=== PATIENT | female | born 1995 | race Caucasian/White ===

== ENCOUNTER 2017-03-16 20:11 | Emergency (ER) | payer BC ==
[2017-03-16 20:24] VITALS: RESP 20
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
--- NOTE | 2017-03-16 21:02 | XR ---
EXAMINATION TYPE: XR foot complete RT DATE OF EXAM: 03/16/2017 COMPARISON: None HISTORY: Pain and swelling TECHNIQUE: 3 views FINDINGS: Metatarsals appear intact. I see no fracture nor dislocation. There is minor spurring at th e first MP joint. IMPRESSION: Minor spurring at the first MP joint. No fracture seen..
[2017-03-16 21:32] VITALS: BP 130/68; PULSE 100; TEMP 98
== END 2017-03-16 21:31 | disposition home or self-care (01) ==
LOC: EC 20:11
DX: M77.51 Other enthesopathy of right foot and ankle (principal); Z88.0 Allergy status to penicillin
CPT/HCPCS: 99283

== ENCOUNTER 2017-12-02 16:25 | Emergency (ER) | payer BC ==
[2017-12-02 16:48] VITALS: BP 117/88; RESP 17; TEMP 98.4
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
[2017-12-02 18:27] VITALS: PULSE 87
== END 2017-12-02 18:24 | disposition home or self-care (01) ==
LOC: EC 16:25
DX: M54.5 Low back pain (principal); G89.29 Other chronic pain; R20.0 Anesthesia of skin; Z79.1 Long term (current) use of non-steroidal anti-inflammatories (NSAID); Z88.0 Allergy status to penicillin
CPT/HCPCS: 99283

== ENCOUNTER → 2018-02-17 | Outpatient (CLI) | payer BC ==
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
== END | disposition home or self-care (01) ==
LOC: RADMRIMAIN 20:38
PROVIDERS: ATTEND Family Medicine
DX: M51.27 Other intervertebral disc displacement, lumbosacral region (principal); M43.9 Deforming dorsopathy, unspecified
CPT/HCPCS: 72148

== ENCOUNTER 2021-07-24 19:15 | Emergency (ER) | payer BC ==
[2021-07-24 20:06] VITALS: TEMP 98.6
--- NOTE | 2021-07-24 20:32 | ED ---
Female Urogenital HPI - General Chief complaint: Vaginal Bleeding Stated complaint: 8wks preg/bleeding Time Seen by Provider: 07/24/21 20:06 Source: patient, RN notes reviewed Mode of arrival: ambulatory Limitations: no limitations - History of Present Illness Initial comments: This a 26-year-old female presents emergency from chief complaint of vaginal bleeding early . Patient states she's had spotting last 3-4 days. Patient is A0 currently 6 . Patient states that she has no abdominal pain cramping at this time. She states the spotting usually happens in the afternoon. Patient states she is O+ blood type. Patient states her [employer] is out of [place]. Patient denies any dysuria, patient does have urinary frequency which is normal for patient. Patient reports no fevers chills no back pain or flank pain. - Related Data Home Medications Medication Instructions Recorded Confirmed Levothyroxine Sodium [Synthroid] 50 mcg PO DAILY 07/24/21 07/24/21 Syx-Dbmc-Plreq Acid 1 cap PO HS 07/24/21 07/24/21 [-U Capsule (formulary)] Allergies Allergy/AdvReac Type Severity Reaction Status Date / Time amoxicillin AdvReac States Verified 07/24/21 20:34 "does not work" Review of Systems ROS Statement: Those systems with pertinent positive or pertinent negative responses have been documented in the HPI. ROS Other: All systems not noted in ROS Statement are negative. Past Medical History Past Medical History: No Reported History History of Any Multi-Drug Resistant Organisms: None Reported Past Surgical History: No Surgical Hx Reported Past Psychological History: No Psychological Hx Reported Smoking Status: Never smoker Past Alcohol Use History: None Reported Past Drug Use History: None Reported General Exam Limitations: no limitations General appearance: alert, in no apparent distress Head exam: Present: atraumatic, normocephalic, normal inspection Eye exam: Present: normal appearance, PERRL, EOMI. Absent: scleral icterus, conjunctival injection, periorbital swelling Respiratory exam: Present: normal lung sounds bilaterally. Absent: respiratory distress, wheezes, rales, rhonchi, stridor Cardiovascular Exam: Present: regular rate, normal rhythm, normal heart sounds. Absent: systolic murmur, diastolic murmur, rubs, gallop, clicks GI/Abdominal exam: Present: soft, normal bowel sounds. Absent: distended, tenderness, guarding, rebound, rigid Back exam: Absent: CVA tenderness (R), CVA tenderness (L) Neurological exam: Present: alert Skin exam: Present: warm, dry, intact, normal color. Absent: rash Course Vital Signs 07/24/21 20:00 Temperature 98.6 F Pulse Rate 106 H Respiratory 18 Rate Blood Pressure 127/80 O2 Sat by Pulse 99 Oximetry Medical Decision Making - Medical Decision Making Patient is O+ blood type does not require RhoGAM. Ultrasound is concerning as there is a fluid collection the lower uterine, cervix region. The explain this patient's concerning for miscarriage patient will have repeat hCG in 2 days return parameters were discussed. - Lab Data Lab Results 07/24/21 07/24/21 Range/Units 20:31 20:32 HCG, Qual Detected Blood Type O Positive Blood Type Recheck No Previous Record Bld Type Recheck Status [facility] ONLY Disposition Clinical Impression: Threatened miscarriage in early Disposition: HOME SELF-CARE Condition: Stable Instructions (If sedation given, give patient instructions): Threatened Miscarriage (ED) Additional Instructions: Please return to the Emergency Department if symptoms worsen or any other concerns. Is patient prescribed a controlled substance at d/c from ED?: No Referrals: Zeus Bonilla MD [Primary Care Provider] - 1-2 days Time of Disposition: 22:17
--- NOTE | 2021-07-24 22:02 | US ---
EXAMINATION TYPE: Transabdominal DATE OF EXAM: 07/24/2021 9:49 PM COMPARISON: NONE CLINICAL HISTORY: spotting. Spotting. . EXAM PERFORMED: Transvaginal (TV) and Transabdominal (TA) EXAM MEASUREMENTS: GESTATIONAL AGE / DATING Physician Established: Not yet established. Dates by LMP: (8 weeks/0 days) EDC: 03/05/2022 Dates by First Scan: This is first scan. Dates by Current Scan for: (5 weeks/1 day) EDC: 03/25/2022. *Gestational sac seen only at this time. MATERNAL ANATOMY Uterus: 8.5 x 5.4 x 4.4 cm. Anteverted. Hyperechoic focus seen in cervix: 0.2 x 0.3 x 0.2 cm. Comple x fluid-appearing area seen in lower uterus/cervix: 1.5 x 0.6 x 0.6 cm. Right Ovary: Not seen. Left Ovary: 3.0 x 2.1 x 1.8 cm. Post CDS / Adnexa: Appear wnl Presence of free fluid: None seen. Presence of corpus luteal cyst: Not seen. Presence of subchorionic bleed: Not seen. GESTATION / SURVEY MSD: 1.09 cm. (5 weeks/1 day) Yolk Sac (normal less than 6mm): Not seen. IUP: Gestational sac seen at this time. Date of LMP: 05/29/2021 Beta HcG (if available): Detected. IMPRESSION: 1 intrauterine gestational sac. pole is not identified. This can be an early . Ectopic is not excluded. Correlation with beta hCG and follow up exams are recommended.
[2021-07-24 22:30] LABS: Appearance,Urine Clear (Clear); Bilirubin,Urine Negative (Negative); Blood,Urine Negative (Negative); Color,Urine Light Yellow; Glucose,Urine (UA) Negative (Negative); Ketones,Urine Negative (Negative); Leukocyte Esterase,Urine Negative (Negative); Nitrite,Urine Negative (Negative); PH, Urine 6.5 (5.0-8.0); Protein,Urine Negative (Negative); Specific Gravity,Urine 1.008 (1.001-1.035); Urobilinogen,Urine <2.0 mg/dL (<2.0)
[2021-07-24 23:07] VITALS: BP 147/87; PULSE 101; RESP 20
== END 2021-07-24 23:07 | disposition home or self-care (01) ==
LOC: EC 19:15
DX: O20.0 Threatened abortion (principal); Z3A.08 8 weeks gestation of pregnancy; Z88.0 Allergy status to penicillin
CPT/HCPCS: 36415; 76801; 76817; 81003; 84702; 84703; 86900; 86901; 99284